=== PATIENT | male | born 1990 | race American Indian/Alaskan Native ===

== ENCOUNTER 2017-10-31 12:30 | Emergency (ER) | payer SELFPAY ==
[2017-10-31] MEDS ORDERED: TYLENOL ONE (12:33)
[2017-10-31 12:41] VITALS: BP 139/70
[2017-10-31] MEDS ORDERED: NACL 0.9% 500 ML 500 ML IV ONE (12:41)
[2017-10-31] MEDS ORDERED: BICILLIN L-A IM ONE (12:58)
[2017-10-31] MEDS ORDERED: DECADRON IM ONE (12:58)
[2017-10-31] MEDS ORDERED: NORCO PO ONE (12:59)
--- NOTE | 2017-10-31 13:05 | Emergency Department Report ---
ED Fever HPI - General Chief Complaint: Fever Stated Complaint: FEELING COLD Time Seen by Provider: 10/31/17 12:56 - History of Present Illness Initial Comments: Patient is a 27-year-old [place] male who is complaining of fever and generalized body aches and sore throat. Patient also does have a mild cough as well. Cough is productive of some clear sputum. The patient states symptoms been present for approximately 2 days. Patient states he feels weak and fatigued. Patient states the pain is 8 out of 10 in severity and is aching pain. Patient states her throat hurts worse when he tries to swallow but easily is able to swallow his own saliva ED Review of Systems ROS: Stated complaint: FEELING COLD Other details as noted in HPI Comment: Unobtainable due to pts medical conditions ED Past Medical Hx - Past Medical History Previous Medical History?: No - Surgical History Past Surgical History?: No - Social History Smoking Status: Never Smoker Substance Use Type: None - Medications Home Medications: Home Medications Medication Instructions Recorded Confirmed Last Taken Type HYDROcodone/ACETAMINOPHEN 15 ml PO Q6HR PRN #150 solution 10/31/17 Unknown Rx [Hydrocodon-Acetamin 7.5-325/15] ED Physical Exam - General Limitations: No Limitations General appearance: alert, in no apparent distress - Head Head exam: Present: atraumatic, normocephalic - Eye Eye exam: Present: normal appearance - ENT ENT exam: Present: mucous membranes moist, other (patient has bilateral tonsillar swelling with exudate) - Neck Neck exam: Present: normal inspection - Respiratory Respiratory exam: Present: normal lung sounds bilaterally. Absent: respiratory distress, wheezes, rales, rhonchi - Cardiovascular Cardiovascular Exam: Present: regular rate, normal rhythm. Absent: systolic murmur, diastolic murmur, rubs, gallop - GI/Abdominal GI/Abdominal exam: Present: soft, normal bowel sounds. Absent: distended, tenderness, guarding, rebound - Rectal Rectal exam: Present: deferred - Extremities Exam Extremities exam: Present: normal inspection - Back Exam Back exam: Present: normal inspection - Neurological Exam Neurological exam: Present: alert, oriented X3 - Psychiatric Psychiatric exam: Present: normal affect, normal mood - Skin Skin exam: Present: warm, dry, intact, normal color. Absent: rash ED Course Vital Signs 10/31/17 12:38 Temperature 102.8 F H Pulse Rate 113 H Respiratory 24 Rate Blood Pressure 139/70 O2 Sat by Pulse 98 Oximetry ED Medical Decision Making - EKG Data -: EKG Interpreted by Me EKG shows normal: axis, intervals, QRS complexes, ST-T waves Rate: tachycardia (101 rate) - Medical Decision Making Patient will be started on Bicillin. Patient is meet [facility] criteria for empiric treatment. Patient also given a Decadron shot. Meds for symptomatic relief and patient be discharged home. Critical care attestation.: If time is entered above; I have spent that time in minutes in the direct care of this critically ill patient, excluding procedure time. ED Disposition Clinical Impression: Exudative pharyngitis Disposition: DC-01 TO HOME OR SELFCARE Is pt being admited?: No Does the pt Need Aspirin: No Condition: Stable Instructions: Pharyngitis (ED) Referrals: [facility] [Outside] - 3-5 Days Forms: Work/School Release Form(ED)
[2017-10-31] MEDS ORDERED: TYLENOL PO ONE (17:36)
== END 2017-10-31 13:53 | disposition home or self-care (01) ==
LOC: ED 12:30
DX: J02.9 Acute pharyngitis, unspecified (principal)
CPT/HCPCS: 93005; 93010; 96372; 99282; J0561; J1100